=== PATIENT | female | born 2000 | race Caucasian/White ===

== ENCOUNTER 2024-09-04 10:32 | Emergency (ER) | payer BC ==
[~2024-09-04] VITALS: Ht 170.2 cm; Wt 63.5 kg
[2024-09-04 11:13] LABS: BASOPHILS % 0.5 % (0.0-1.0); EOSINOPHILS # (AUTO) 0.1 (0.0-0.4); EOSINOPHILS % 2.5 % (0.0-6.0); HEMATOCRIT 31.8 % (34.2-44.1); HEMOGLOBIN 10.7 g/dL (12.0-16.0); LYMPHOCYTES # (AUTO) 1.2 (1.0-3.2); LYMPHOCYTES % 22.3 % (18.0-39.1); MEAN CORPUSCULAR HEMOGLOBIN 30.1 pg (28-32); MEAN CORPUSCULAR HGB CONC 33.6 g/dL (31-35); MEAN CORPUSCULAR VOLUME 89.6 fL (81-99); MONOCYTES # (AUTO) 0.4 (0.2-0.8); MONOCYTES % 6.5 % (4.4-11.3); NEUTROPHILS # (AUTO) 3.7 (2.1-6.9); PLATELET COUNT 273 x10e3/uL (140-360); RED BLOOD COUNT 3.55 x10e6/uL (3.6-5.1); RED CELL DISTRIBUTION WIDTH 11.8 % (11.7-14.4); WHITE BLOOD COUNT 5.51 x10e3/uL (4.8-10.8)
[2024-09-04] MEDS: SODIUM CHLORIDE 0.9% 1000ML 1,000 ML IV ONE (11:23)
[2024-09-04 11:24] LABS: ALANINE AMINOTRANSFERASE 8 IU/L (0-55); ALBUMIN 3.5 g/dL (3.5-5.0); ALKALINE PHOSPHATASE 66 IU/L (40-150); ANION GAP 13.8 mmol/L (8-16); BILIRUBIN,TOTAL 0.4 mg/dL (0.2-1.2); BLOOD UREA NITROGEN 10 mg/dL (7-26); BUN/CREATININE RATIO 14 (6-25); CALCIUM 8.8 mg/dL (8.4-10.2); CARBON DIOXIDE 23 mmol/L (22-29); CHLORIDE 109 mmol/L (98-107); CREATININE, SERUM 0.69 mg/dL (0.57-1.11); EST GLOMERULAR FILTRATION RATE 127 ML/MIN (>=60); GLUCOSE 94 mg/dL (74-118); POTASSIUM 3.8 mmol/L (3.5-5.1); SODIUM 142 mmol/L (136-145); TOTAL PROTEIN 6.9 g/dL (6.5-8.1)
[2024-09-04 11:33] VITALS: PULSE 89; RESP 16; TEMP 98.1
[2024-09-04] MEDS ORDERED: IOPAMIDOL 370 MG/ML 100 ML INFUS..BTL INJ ONE (11:45)
[2024-09-04 11:51] LABS: BILIRUBIN,URINE NEGATIVE (NEGATIVE); CLARITY,URINE CLEAR (CLEAR); COLOR,URINE YELLOW (YELLOW); GLUCOSE, URINE NEGATIVE (NEGATIVE); KETONES,URINE NEGATIVE (NEGATIVE); LEUKOCYTE ESTERASE ,URINE NEGATIVE (NEGATIVE); NITRITE,URINE NEGATIVE (NEGATIVE); PH,URINE 6.5 (5 - 7); PROTEIN,URINE DIPSTICK NEGATIVE (NEGATIVE); URINE UROBILINOGEN 0.2 mg/dL (0.2 - 1)
[2024-09-04 12:05] LABS: BACTERIA,URINE MODERATE /HPF; EPITHELIAL CELLS,URINE FEW /LPF; RBC,URINE 0-5 /HPF (0-5); WBC,URINE (MAN) 0-5 /HPF (0-5)
[2024-09-04] MEDS ORDERED: CEPHALEXIN500 MG PO (15:36)
[2024-09-04 15:47] VITALS: BP 115/68; PULSE 67; RESP 18; TEMP 98.1; O2SAT 98
[2024-09-06] MEDS ORDERED: CIPRO500 MG PO (16:41)
[2024-09-07 07:10] LABS: CHLAMYDIA NUC AMP Negative (Negative)
[2024-09-07 08:09] LABS: NEISSERIA GONORRHOEAE, NAA Negative (Negative)
[2024-09-07 09:10] LABS: CHLAMYDIA NUC AMP Negative (Negative)
[2024-09-07 10:26] LABS: NEISSERIA GONORRHOEAE, NAA Negative (Negative)
== END 2024-09-04 15:49 | disposition home or self-care (01) ==
LOC: ER 10:38
DX: R41.82 Altered mental status, unspecified (principal); E86.1 Hypovolemia; N89.8 Other specified noninflammatory disorders of vagina; N80.9 Endometriosis, unspecified
CPT/HCPCS: 36415; 70450; 71045; 74177; 76856; 80053; 81001; 84702; 85025; 87086; 87186; 87210; 87491; 87591; 99284; J7030; Q9967